=== PATIENT | male | born 1985 | race Caucasian/White ===

== ENCOUNTER 2017-09-15 16:06 | Emergency (ER) | payer OTHER ==
[2017-09-15] MEDS ORDERED: Doxycycline 100 MG Cap ONE (16:15)
--- NOTE | 2017-09-15 17:23 | EDM.PDOC ---
ED HPI GENERAL MEDICAL PROBLEM - General Chief Complaint: General Stated Complaint: TICK BITE Time Seen by Provider: 09/15/17 16:30 Source of Information: Reports: Patient History Limitations: Reports: No Limitations - History of Present Illness INITIAL COMMENTS - FREE TEXT/NARRATIVE: According to patient he claims that he has had a tick bite on his right lower back, which he claims is not sure how long, but pt's claims this was noted 3 days ago. He has developed a itchy rash over the bite area. the tick was removed at home. Pt claims that he has been having body aches and muscle aches since yesterday. No fever or chills. No joint pain or swelling. No nausea. No cough or URI symptoms. As he saw the tick he got concerned and is here for recheck. Associated Symptoms: Reports: Weakness. Denies: Confusion, Chest Pain, Cough, Diaphoresis, Fever/Chills, Headaches, Malaise, Nausea/Vomiting, Rash, Seizure, Shortness of Breath - Related Data Allergies Allergy/AdvReac Type Severity Reaction Status Date / Time No Known Allergies Allergy Verified 08/01/16 17:32 Home Meds: Home Meds Omeprazole [Prilosec] 10 mg PO DAILY 08/25/14 [History] Past Medical History Cardiovascular History: Reports: None, Afib Respiratory History: Reports: None Gastrointestinal History: Reports: None Genitourinary History: Reports: None Musculoskeletal History: Reports: Arthritis, Back Pain, Chronic Neurological History: Reports: Concussion Psychiatric History: Reports: Anxiety, Depression, Mood Swings, Panic Attack Endocrine/Metabolic History: Reports: Obesity/BMI 30+, Vitamin D Deficiency Oncologic (Cancer) History: Reports: None - Infectious Disease History Infectious Disease History: Reports: Chicken Pox, Influenza - Past Surgical History HEENT Surgical History: Reports: Oral Surgery Social & Family History - Family History Family Medical History: Noncontributory - Tobacco Use Smoking Status *Q: Current Every Day Smoker Years of Tobacco use: 10 Used Tobacco, but Quit: No - Alcohol Use Days Per Week of Alcohol Use: 3 Number of Drinks Per Day: 2 Total Drinks Per Week: 6 - Recreational Drug Use Recreational Drug Use: No ED ROS GENERAL - Review of Systems Review Of Systems: See Below Constitutional: Reports: Weakness. Denies: Fever, Chills HEENT: Denies: Rhinitis, Sinus Problem, Throat Pain, Throat Swelling Respiratory: Denies: Shortness of Breath, Wheezing, Cough, Sputum Cardiovascular: Denies: Chest Pain, Lightheadedness GI/Abdominal: Denies: Abdominal Pain, Nausea, Vomiting : Denies: Dysuria, Flank Pain Musculoskeletal: Reports: Muscle Pain, Muscle Stiffness. Denies: Arm Pain, Back Pain, Joint Pain, Joint Swelling Skin: Denies: Bruising, Pruritis, Rash, Erythema Neurological: Denies: Confusion, Dizziness, Headache, Syncope, Weakness ED EXAM, GENERAL - Physical Exam Exam: See Below Exam Limited By: No Limitations General Appearance: Alert, WD/WN, No Apparent Distress Eye Exam: Bilateral Eye: EOMI, PERRL Ears: Normal External Exam, Normal Canal, Hearing Grossly Normal, Normal TMs Ear Exam: Bilateral Ear: Auricle Normal, Canal Normal, TM normal Nose: Normal Inspection, Normal Mucosa, No Blood Throat/Mouth: Normal Inspection, Normal Lips, Normal Teeth, Normal Gums, Normal Oropharynx, Normal Voice, No Airway Compromise Head: Atraumatic, Normocephalic Neck: Normal Inspection, Supple, Non-Tender, Full Range of Motion Respiratory/Chest: No Respiratory Distress, Lungs Clear, Normal Breath Sounds, No Accessory Muscle Use, Chest Non-Tender Cardiovascular: Normal Peripheral Pulses, Regular Rate, Rhythm, No Edema, No Gallop, No JVD, No Murmur, No Rub GI/Abdominal: Normal Bowel Sounds, Soft, Non-Tender, No Organomegaly, No Distention, No Abnormal Bruit, No Mass Skin Exam: Warm, Intact, Normal Color, No Rash, Other (right lower back: ther is a 3cm circular pinkish red rash with the cetner dark spot. minimal warmth to tocuh.) Course - Vital Signs Text/Narrative:: Pt has tick bite with bull's eye rash over the right lower back. I have empirically treated him with Doxy 100mg BID for 10 days. advised to avoid direct sunlight. His CBC done today appears normal. Reassured that his myalgia is not asso with his tick bite, and he probably has viral muscle aches. Advised rest and hydration. Motrin 800mg 3 times daily as needed for pain, should improve in 2-3 days. If not better follow in clinic Last Recorded V/S: Last Vital Signs Temp 98.3 F 09/15/17 16:15 Pulse 71 09/15/17 16:15 Resp 12 09/15/17 16:15 BP 142/87 H 09/15/17 16:15 Pulse Ox 98 09/15/17 16:15 - Orders/Labs/Meds Labs: Laboratory Tests 09/15/17 Range/Units 17:20 WBC 10.0 (4.0-11.0) K/uL RBC 5.78 (4.50-6.50) M/uL Hgb 15.9 (13.0-18.0) g/dL Hct 46.3 (40.0-54.0) % MCV 80 (76-96) fL MCH 27.5 (27.0-32.0) pg MCHC 34.3 (31.0-35.0) g/dL RDW 13.5 (11.0-16.0) % Plt Count 150 (150-400) K/uL MPV 11.5 H (6.0-10.0) fL Neut % (Auto) 66.5 (45.0-70.0) % Lymph % (Auto) 23.6 (20.0-40.0) % [place] % (Auto) 7.8 (3.0-10.0) % Eos % (Auto) 1.9 (1.0-5.0) % Baso % (Auto) 0.2 (0.0-0.5) % Neut # (Auto) 6.65 (2.00-7.50) K/uL Lymph # (Auto) 2.36 (1.50-4.00) K/uL [place] # (Auto) 0.78 (0.20-0.80) K/uL Eos # (Auto) 0.19 (0.04-0.40) K/uL Baso # (Auto) 0.02 (0.02-0.10) K/uL Departure - Departure Time of Disposition: 17:30 Disposition: Home, Self-Care 01 Condition: Fair Clinical Impression: Myalgia, Tick bite - Discharge Information Instructions: Lyme Disease Forms: ED Department Discharge Additional Instructions: Pt has tick bite with bull's eye rash over the right lower back. I have empirically treated him with Doxy 100mg BID for 10 days. advised to avoid direct sunlight. His CBC done today appears normal. Reassured that his myalgia is not asso with his tick bite, and he probably has viral muscle aches. Advised rest and hydration. Motrin 800mg 3 times daily as needed for pain, should improve in 2-3 days. If not better follow in clinic - Problem List & Annotations (1) Myalgia SNOMED Code(s): 31971338 Code(s): M79.1 - MYALGIA Status: Acute (2) Tick bite SNOMED Code(s): 74935715 Code(s): W57.XXXA - BIT/STUNG BY NONVENOM INSECT & OTH NONVENOM ARTHROPODS, INIT Status: Acute - Problem List Review Problem List Initiated/Reviewed/Updated: Yes - Assessment/Plan Assessment:: Tick bite with Bull's eye rash Viral Myalgia Plan: Pt has tick bite with bull's eye rash over the right lower back. I have empirically treated him with Doxy 100mg BID for 10 days. advised to avoid direct sunlight. His CBC done today appears normal. Reassured that his myalgia is not asso with his tick bite, and he probably has viral muscle aches. Advised rest and hydration. Motrin 800mg 3 times daily as needed for pain, should improve in 2-3 days. If not better follow in clinic
== END 2017-09-15 17:30 | disposition home or self-care (01) ==
LOC: LB.ED 16:06
DX: S00.86XA Insect bite (nonvenomous) of other part of head, initial encounter (principal); M79.1 Myalgia; F17.210 Nicotine dependence, cigarettes, uncomplicated; Z79.899 Other long term (current) drug therapy; W57.XXXA Bitten or stung by nonvenomous insect and other nonvenomous arthropods, initial encounter
CPT/HCPCS: 36415; 85025; 99283; A9270

== ENCOUNTER 2019-12-03 22:01 | Emergency (ER) | payer OTHER ==
[2019-12-03] MEDS ORDERED: Amoxicillin 500 MG Cap ONE (23:00)
--- NOTE | 2019-12-04 01:28 | ER ---
REASON FOR EMERGENCY ROOM VISIT: Fever and sore throat. HISTORY OF PRESENT ILLNESS: This 34-year-old man has had a sore throat and a fever since approximately 2 a.m. this morning when he was awakened with a sore throat. He had a 1 or 2- day history of minimally productive cough prior to that. His sore throat and fever continued throughout the day, reaching highs of 103 to 104 degrees. He finally decided to take some aspirin this evening and his temperature came down to normal. He has had some mild nausea but no vomiting. PAST MEDICAL HISTORY: 1. GERD. 2. History of atrial fibrillation, intermittent. MEDICATIONS: Include omeprazole. ALLERGIES: NONE. REVIEW OF SYSTEMS: Pertinent positives and negatives as listed in the HPI. PHYSICAL EXAMINATION: GENERAL: He is a pleasant man in no acute distress. HEENT: No conjunctivitis is noted. Oropharynx shows that he has erythema and tonsillar patchy whitish exudates. A strep screen was obtained. NECK: There is no cervical adenopathy. It is supple. CHEST: Clear to auscultation with good air exchange and no wheezes, rhonchi, or rales. CARDIAC: Regular rate without murmur or rub. ABDOMEN: Soft, nontender. No hepatosplenomegaly. EXTREMITIES: [place], warm with no cyanosis and good capillary refill. LABORATORY DATA: A strep screen was negative. We obtained a nasopharyngeal swab for influenza. His strep screen was positive, and his nasopharyngeal swab for influenza A and B was negative. IMPRESSION: Streptococcal pharyngitis. PLAN: Amoxicillin 500 mg p.o. q.i.d., dispensed #30. Other supportive measures were discussed with him. He understands and agrees with this plan. All questions were answered. MOO /[id number]
== END 2019-12-03 23:20 | disposition home or self-care (01) ==
LOC: LB.ED 22:01
DX: J02.0 Streptococcal pharyngitis (principal)
CPT/HCPCS: 87430; 87804; 87804-59; 99283; A9270-GY

== ENCOUNTER 2021-06-08 10:54 | Emergency (ER) | payer OTHER ==
--- NOTE | 2021-06-08 14:23 | EDM.PDOC ---
ED HPI GENERAL MEDICAL PROBLEM - General Chief Complaint: Cardiovascular Problem Stated Complaint: HEART ISSUE Time Seen by Provider: 06/08/21 11:10 - History of Present Illness INITIAL COMMENTS - FREE TEXT/NARRATIVE: Pt states he had an irregular heartbeat last evening for awhile. He feels better now, but is concerned about it. He has Hx of A fib, but is not on any meds for it. He denies chest pain, or SOB. He does not feel sick. - Related Data Allergies Allergy/AdvReac Type Severity Reaction Status Date / Time No Known Allergies Allergy Verified 06/08/21 11:24 Home Meds: Home Meds Omeprazole [Prilosec] 10 mg PO DAILY 08/25/14 [History] Past Medical History Cardiovascular History: Reports: None, Afib Respiratory History: Reports: None Gastrointestinal History: Reports: None Genitourinary History: Reports: None Musculoskeletal History: Reports: Arthritis, Back Pain, Chronic Neurological History: Reports: Concussion Psychiatric History: Reports: Anxiety, Depression, Mood Swings, Panic Attack Endocrine/Metabolic History: Reports: Obesity/BMI 30+, Vitamin D Deficiency Oncologic (Cancer) History: Reports: None - Infectious Disease History Infectious Disease History: Reports: Chicken Pox, Influenza - Past Surgical History HEENT Surgical History: Reports: Oral Surgery Other Musculoskeletal Surgeries/Procedures:: back pain: history 11 years per patient Social & Family History - Family History Family Medical History: No Pertinent Family History - Tobacco Use Years of Tobacco use: 15 Packs/Tins Daily: 1 - Recreational Drug Use Recreational Drug Type: Reports: Marijuana/Hashish Recreational Drug Use Frequency: Weekly ED ROS GENERAL - Review of Systems Review Of Systems: Comprehensive ROS is negative, except as noted in HPI. Cardiovascular: Reports: Palpitations (on and off.) ED EXAM, GENERAL - Physical Exam Exam: See Below #1 Interpretation EKG Date: 06/08/21 (NSR at this time.) Course - Vital Signs Last Recorded V/S: Last Vital Signs Temp 97 F 06/08/21 11:21 Pulse 63 06/08/21 11:57 Resp 16 06/08/21 11:57 BP 128/89 06/08/21 11:57 Pulse Ox 68 L 06/08/21 11:57 - Orders/Labs/Meds Orders: Active Orders 24 hr Category Date Time Status Chest 1V Frontal [CR] Stat Exams 06/08/21 11:20 Taken Labs: Laboratory Tests 06/08/21 06/08/21 Range/Units 11:30 11:33 WBC 8.0 (4.0-11.0) K/uL RBC 5.78 (4.50-6.50) M/uL Hgb 16.0 (13.0-18.0) g/dL Hct 47.0 (40.0-54.0) % MCV 81 (76-96) fL MCH 27.7 (27.0-32.0) pg MCHC 34.0 (31.0-35.0) g/dL RDW 13.7 (11.0-16.0) % Plt Count 127 L (150-400) K/uL MPV 11.7 H (6.0-10.0) fL Neut % (Auto) 67.3 (45.0-70.0) % Lymph % (Auto) 23.7 (20.0-40.0) % [place] % (Auto) 7.4 (3.0-10.0) % Eos % (Auto) 1.3 (1.0-5.0) % Baso % (Auto) 0.3 (0.0-0.5) % Neut # (Auto) 5.38 (2.00-7.50) K/uL Lymph # (Auto) 1.89 (1.50-4.00) K/uL [place] # (Auto) 0.59 (0.20-0.80) K/uL Eos # (Auto) 0.10 (0.04-0.40) K/uL Baso # (Auto) 0.02 (0.02-0.10) K/uL Sodium 142 (136-145) mmol/L Potassium 4.0 (3.5-5.1) mmol/L Chloride 105 (98-107) mmol/L Carbon Dioxide 26.2 (21.0-32.0) mmol/L Anion Gap 14.8 (5.0-15.0) mmol/L BUN 19 (8-26) mg/dL Creatinine 0.82 (0.70-1.30) mg/dL Est Cr Clr Drug Dosing 119.33 mL/min Estimated GFR (MDRD) > 60 (>60) MLS/MIN BUN/Creatinine Ratio 23.2 (6-25) Glucose 118 H (74-100) mg/dL Calcium 8.8 (8.5-10.1) mg/dL Total Bilirubin 0.5 (0.0-1.0) mg/dL AST 32 (15-37) U/L ALT 47 (12-78) U/L Alkaline Phosphatase 53 (46-116) U/L Troponin I < 0.017 (0.000-0.060) ng/mL Total Protein 7.5 (6.4-8.2) g/dL Albumin 3.9 (3.4-5.0) g/dL Globulin 3.6 (2.2-4.2) g/dL Albumin/Globulin Ratio 1.1 (0.8-2.0) - Radiology Interpretation Free Text/Narrative:: CXR reveals no acute findings on first impression. Waiting on RAD report. Departure - Departure Time of Disposition: 12:15 Disposition: Home, Self-Care 01 Clinical Impression: Palpitations with regular cardiac rhythm Instructions: Atrial Fibrillation, [id number] Referrals: Argelia Cee MD [Primary Care Provider] - Forms: ED Department Discharge Care Plan Goals: take Cardizem as directed and follow up at the clinic next week. Sepsis Event Note (ED) - Evaluation Sepsis Screening Result: No Definite Risk - Focused Exam Vital Signs: Vital Signs Temp Pulse Resp BP Pulse Ox 06/08/21 11:57 63 16 128/89 68 L 06/08/21 11:21 97 F 68 16 145/90 H 97 - My Orders Last 24 Hours: My Active Orders 06/08/21 11:20 Chest 1V Frontal [CR] Stat - Assessment/Plan Last 24 Hours: My Active Orders 06/08/21 11:20 Chest 1V Frontal [CR] Stat
--- NOTE | 2021-06-08 14:43 | CR ---
Date of Service: 06/08/21 Clinical Data: Chest pain. AP CHEST: No priors. The patient has taken a poor inspiration. The heart size is normal. The lungs are clear. No pneumothorax. No pleural effusions. No evidence of acute intrathoracic disease. [id number] [facility]
== END 2021-06-08 12:09 | disposition home or self-care (01) ==
LOC: LB.ED 10:54
DX: R00.2 Palpitations (principal); E66.9 Obesity, unspecified; Z68.41 Body mass index [BMI] 40.0-44.9, adult; Z79.899 Other long term (current) drug therapy; Z72.0 Tobacco use
CPT/HCPCS: 36415; 71045; 80053; 84484; 85025; 93005; 99285-25

== ENCOUNTER 2021-06-10 14:40 | Emergency (ER) | payer OTHER ==
[2021-06-10] MEDS ORDERED: Metoprolol Tartrate 25 MG Tab ONE ×3 (14:55→17:56)
[2021-06-10] MEDS ORDERED: Sodium Chloride 0.9% 10 ML Syringe FLUSH PRN (15:12)
[2021-06-10] MEDS ORDERED: Sodium Chloride 0.9% 1,000 ML IV ONE (15:12)
[2021-06-10] MEDS ORDERED: Metoprolol Tartrate 25 MG Tab PO ONE (15:38)
[2021-06-10] MEDS ORDERED: Magnesium Sulfate/D5W 1 GM/100 ML Premix Bag IV STA (16:07)
[2021-06-10] MEDS ORDERED: Potassium Chloride 20 MEQ Tab.ER PO ONE (16:07)
--- NOTE | 2021-06-10 16:13 | EDM.PDOC ---
ED HPI GENERAL MEDICAL PROBLEM - General Chief Complaint: Cardiovascular Problem Stated Complaint: HIGH BLOOD PRESSURE Time Seen by Provider: 06/10/21 15:00 Source of Information: Reports: Patient History Limitations: Reports: No Limitations - History of Present Illness INITIAL COMMENTS - FREE TEXT/NARRATIVE: patient presented to the ER with a c/o palpitations, for the last 3-4 days, got worse over the last 24hrs. He also reports mild exertional dyspnea. No fever, chills or cough. No dizziness or syncope. h/o afib in the past - several years - never been on meds. Was last seen in the ER 2 days ago for the a similar complaint - was started on Diltiazem 120mg once daily. He is back again because no improvement tin symptoms. Onset: Gradual Duration: Day(s): (3) - Related Data Allergies Allergy/AdvReac Type Severity Reaction Status Date / Time No Known Allergies Allergy Verified 06/08/21 11:24 Home Meds: Home Meds Omeprazole [Prilosec] 10 mg PO DAILY 08/25/14 [History] Diltiazem [Cardizem] 120 mg PO DAILY 06/10/21 [History] Magnesium Oxide 400 mg PO DAILY #14 tab 06/10/21 [Rx] Past Medical History Cardiovascular History: Reports: None, Afib Respiratory History: Reports: None Gastrointestinal History: Reports: None Genitourinary History: Reports: None Musculoskeletal History: Reports: Arthritis, Back Pain, Chronic Neurological History: Reports: Concussion Psychiatric History: Reports: Anxiety, Depression, Mood Swings, Panic Attack Endocrine/Metabolic History: Reports: Obesity/BMI 30+, Vitamin D Deficiency Oncologic (Cancer) History: Reports: None - Infectious Disease History Infectious Disease History: Reports: Chicken Pox, Influenza - Past Surgical History HEENT Surgical History: Reports: Oral Surgery Other Musculoskeletal Surgeries/Procedures:: back pain: history 11 years per patient Social & Family History - Family History Family Medical History: No Pertinent Family History - Tobacco Use Tobacco Use Status *Q: Current Every Day Tobacco User Years of Tobacco use: 15 Packs/Tins Daily: 1 - Caffeine Use Caffeine Use: Reports: Coffee, Soda - Recreational Drug Use Recreational Drug Type: Reports: Marijuana/Hashish ED ROS GENERAL - Review of Systems Review Of Systems: See Below Constitutional: Reports: No Symptoms HEENT: Reports: No Symptoms Respiratory: Reports: No Symptoms Cardiovascular: Reports: Dyspnea on Exertion, Palpitations Endocrine: Reports: No Symptoms GI/Abdominal: Reports: No Symptoms Musculoskeletal: Reports: No Symptoms Skin: Reports: No Symptoms Neurological: Reports: No Symptoms Psychiatric: Reports: No Symptoms ED EXAM, GENERAL - Physical Exam Exam: See Below Exam Limited By: No Limitations General Appearance: Alert, WD/WN, No Apparent Distress Eye Exam: Bilateral Eye: EOMI, PERRL Head: Atraumatic Respiratory/Chest: No Respiratory Distress Cardiovascular: Normal Peripheral Pulses, Regular Rate, Rhythm GI/Abdominal: Normal Bowel Sounds Extremities: Normal Inspection Neurological: Alert, Oriented, No Motor/Sensory Deficits Psychiatric: Normal Affect #1 Interpretation EKG Date: 06/10/21 Rhythm: NSR [place]: Normal P-Wave: Present QRS: Normal ST-T: Normal QT: Normal Course - Vital Signs Last Recorded V/S: Last Vital Signs Temp Pulse 79 06/10/21 15:39 Resp BP 107/64 06/10/21 15:39 Pulse Ox - Orders/Labs/Meds Orders: Active Orders 24 hr Category Date Time Status EKG Documentation Completion [RC] ASDIRECTED Care 06/10/21 15:13 Active Sodium Chloride 0.9% [Saline Flush] Med 06/10/21 15:12 Active 10 ml FLUSH ASDIRECTED PRN Saline Lock Insert [OM.PC] Routine Oth 06/10/21 15:12 Ordered Medication Orders Sodium Chloride (Sodium Chloride 0.9% 10 Ml Syringe) 10 ml FLUSH ASDIRECTED PRN PRN Reason: Keep Vein Open Labs: Laboratory Tests 06/10/21 06/10/21 06/10/21 Range/Units 15:30 15:30 15:30 WBC 11.7 H D (4.0-11.0) K/uL RBC 6.05 (4.50-6.50) M/uL Hgb 16.7 (13.0-18.0) g/dL Hct 48.3 (40.0-54.0) % MCV 80 (76-96) fL MCH 27.6 (27.0-32.0) pg MCHC 34.6 (31.0-35.0) g/dL RDW 14.2 (11.0-16.0) % Plt Count 150 (150-400) K/uL MPV 11.7 H (6.0-10.0) fL D-Dimer, Quantitative < 100 (0-400) ng/mL Sodium 141 (136-145) mmol/L Potassium 3.4 L (3.5-5.1) mmol/L Chloride 104 (98-107) mmol/L Carbon Dioxide 22.8 (21.0-32.0) mmol/L Anion Gap 17.6 H (5.0-15.0) mmol/L BUN 20 (8-26) mg/dL Creatinine 0.92 (0.70-1.30) mg/dL Est Cr Clr Drug Dosing 106.36 mL/min Estimated GFR (MDRD) > 60 (>60) MLS/MIN BUN/Creatinine Ratio 21.7 (6-25) Glucose 128 H (74-100) mg/dL Calcium 9.9 (8.5-10.1) mg/dL Phosphorus 3.5 (2.5-4.9) mg/dL Magnesium 1.5 L (1.8-2.4) mg/dL Meds: Medications Generic Name Dose Route Start Last Admin Trade Name Freq PRN Reason Stop Dose Admin Sodium Chloride 10 ml 06/10/21 15:12 Sodium Chloride 0.9% 10 Ml Syringe FLUSH ASDIRECTED PRN Keep Vein Open Discontinued Medications Generic Name Dose Route Start Last Admin Trade Name Freq PRN Reason Stop Dose Admin Sodium Chloride 1,000 mls @ 999 mls/hr 06/10/21 15:12 06/10/21 15:20 Normal Saline IV 06/10/21 16:12 999 mls/hr .BOLUS ONE Administration Magnesium Sulfate/Dextrose 1 gm 06/10/21 16:07 06/10/21 16:31 Magnesium Sulfate/D5w 1 Gm/100 Ml Premix Bag IV 06/10/21 16:08 1 gm NOW STA Administration Metoprolol Tartrate 25 mg 06/10/21 15:38 06/10/21 15:39 Metoprolol Tartrate 25 Mg Tab PO 06/10/21 15:39 25 mg ONETIME ONE Administration Metoprolol Tartrate Confirm 06/10/21 17:51 Metoprolol Tartrate 25 Mg Tab Administered 06/10/21 17:52 Dose 75 mg .ROUTE .STK-MED ONE Potassium Chloride 20 meq 06/10/21 16:07 06/10/21 16:33 Potassium Chloride 20 Meq Tab.Er PO 06/10/21 16:08 20 meq ONETIME ONE Administration - Re-Assessments/Exams Free Text/Narrative Re-Assessment/Exam: was connected to a monitor normal vitals EKG - NSR but marked sinus arrhythmias. labs were ordered - including CBC, BMP, DDimer, Mag and PO4. IVF bolus labs significant for mild hypokalemia and Hypomagnesemia. Normal Ddimer. K and Mg were placed by Po route PO metoprolol 25 mg was given 06/10/21 17:44 patient reports significant improvement in symptoms no more palpitations Departure - Departure Time of Disposition: 17:45 Disposition: Home, Self-Care 01 Condition: Good Clinical Impression: Palpitations with regular cardiac rhythm, Hypomagnesemia, Acute hypokalemia Prescriptions: Magnesium Oxide 400 mg PO DAILY #14 tab Instructions: Hypomagnesemia, Atrial Fibrillation, [id number] Referrals: PCP,None [Primary Care Provider] - Forms: ED Department Discharge Additional Instructions: - start taking metoprolol twice daily as prescribed - stop taking diltiazem - start taking magnesium one tab daily - increase food that is rich in potassium - follow up with your PCP/linen attendant in 1-2 weeks as needed - return to the ER if symptoms got worse or any concerns Sepsis Event Note (ED) - Focused Exam Vital Signs: Vital Signs Pulse BP 06/10/21 15:39 79 107/64 - Problem List & Annotations (1) Acute hypokalemia SNOMED Code(s): 94532718 Code(s): E87.6 - HYPOKALEMIA Status: Acute Priority: Low Current Visit: Yes (2) Hypomagnesemia SNOMED Code(s): 673241630 Code(s): E83.42 - HYPOMAGNESEMIA Status: Acute Priority: Low Current Visit: Yes - Problem List Review Problem List Initiated/Reviewed/Updated: Yes - My Orders Last 24 Hours: My Active Orders 06/10/21 15:12 Sodium Chloride 0.9% [Saline Flush] 10 ml FLUSH ASDIRECTED PRN Saline Lock Insert [OM.PC] Routine 06/10/21 15:13 EKG Documentation Completion [RC] ASDIRECTED - Assessment/Plan Last 24 Hours: My Active Orders 06/10/21 15:12 Sodium Chloride 0.9% [Saline Flush] 10 ml FLUSH ASDIRECTED PRN Saline Lock Insert [OM.PC] Routine 06/10/21 15:13 EKG Documentation Completion [RC] ASDIRECTED Plan: - start taking metoprolol twice daily as prescribed - stop taking diltiazem - start taking magnesium one tab daily - increase food that is rich in potassium - follow up with your PCP/linen attendant in 1-2 weeks as needed - return to the ER if symptoms got worse or any concerns
== END 2021-06-10 17:55 | disposition home or self-care (01) ==
LOC: LB.ED 14:40
DX: E87.6 Hypokalemia (principal); E83.42 Hypomagnesemia; R00.2 Palpitations; I49.8 Other specified cardiac arrhythmias; I48.91 Unspecified atrial fibrillation; E66.9 Obesity, unspecified; Z68.41 Body mass index [BMI] 40.0-44.9, adult; Z72.0 Tobacco use; Z79.899 Other long term (current) drug therapy
CPT/HCPCS: 36415; 80048; 83735; 84100; 85027; 85379; 93005; 96365; 99285; A9270; J3475; J7030

== ENCOUNTER 2021-08-28 14:13 | Emergency (ER) | payer OTHER ==
--- NOTE | 2021-08-28 15:19 | EDM.PDOC ---
ED HPI GENERAL MEDICAL PROBLEM - General Chief Complaint: Eye Problems Stated Complaint: RIGHT EYE REDNESS Time Seen by Provider: 08/28/21 14:30 Source of Information: Reports: Patient History Limitations: Reports: No Limitations - History of Present Illness INITIAL COMMENTS - FREE TEXT/NARRATIVE: This patient presents to the emergency department for evaluation of eye redness and pain. He states he was working outside, cutting some brush and did not notice anything in particular of concern however started to have some eye irritation last night. He states he woke up this morning it was a little bit worse. He has got some pain, redness and a little bit of clear drainage from his right eye. He states he does not think he had a foreign body in it but rather has a scratch of some sort. He denies other concerns or complaints. Right Eye Pain Score (Numeric/FACES): 5 - Related Data Allergies Allergy/AdvReac Type Severity Reaction Status Date / Time No Known Allergies Allergy Verified 08/28/21 14:24 Home Meds: Home Meds Omeprazole [Prilosec] 10 mg PO DAILY 08/25/14 [History] Magnesium Oxide 400 mg PO DAILY #14 tab 06/10/21 [Rx] Metoprolol Tartrate 25 mg PO BID #30 tablet 06/10/21 [Rx] Past Medical History Cardiovascular History: Reports: None, Afib Respiratory History: Reports: None Gastrointestinal History: Reports: None Genitourinary History: Reports: None Musculoskeletal History: Reports: Arthritis, Back Pain, Chronic Neurological History: Reports: Concussion Psychiatric History: Reports: Anxiety, Depression, Mood Swings, Panic Attack Endocrine/Metabolic History: Reports: Obesity/BMI 30+, Vitamin D Deficiency Oncologic (Cancer) History: Reports: None - Infectious Disease History Infectious Disease History: Reports: Chicken Pox, Influenza - Past Surgical History HEENT Surgical History: Reports: Oral Surgery Other Musculoskeletal Surgeries/Procedures:: back pain: history 11 years per patient Social & Family History - Family History Family Medical History: No Pertinent Family History - Tobacco Use Tobacco Use Status *Q: Unknown Ever Used Tobacco - Caffeine Use Caffeine Use: Reports: Coffee, Soda ED ROS GENERAL - Review of Systems Review Of Systems: Comprehensive ROS is negative, except as noted in HPI. ED EXAM GENERAL W FULL EYE - Physical Exam Exam: See Below Exam Limited By: No Limitations General Appearance: Alert, WD/WN, No Apparent Distress Eye Exam: Right Eye: Abnormal Pupil (Erythematous, injected), Conjunctival Injection, Corneal Abrasion (At the 9 o'clock position to right eye), Foreign Body (No foreign body was noted), Bilateral Eye: PERRL Eyelids: Bilateral: Normal Appearance Cornea Exam: Right: Foreign Body (No foreign body noted), Examined with Flourescein (Corneal abrasion 9:00 position), Left: Normal Appearance Extraocular Movements: Bilateral: Intact Pupillary Reaction: Bilateral: Brisk Ears: Normal External Exam Throat/Mouth: Normal Inspection Head: Atraumatic, Normocephalic Neck: Full Range of Motion Respiratory/Chest: No Respiratory Distress, No Accessory Muscle Use Course - Vital Signs Last Recorded V/S: Last Vital Signs Temp 35.9 C L 08/28/21 14:25 Pulse 77 08/28/21 14:25 Resp 16 08/28/21 14:25 BP 145/99 H 08/28/21 14:25 Pulse Ox - Re-Assessments/Exams Free Text/Narrative Re-Assessment/Exam: 08/28/21 15:17 This patient presents to the emergency department for evaluation of eye irritation. History clinical findings are most consistent with a corneal abrasion. This was noted with a Beck lamp exam using fluorescein. He did have increased uptake of fluorescein in the 9 o'clock position and his right eye. There is no evidence of a foreign body, penetrating globe injury, corneal clouding, irregular pupil or extraocular movements. There is no evidence of hyphema, iritis, infectious keratitis, or scleritis. 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 The patient was stable at the time of discharge. Departure - Departure Time of Disposition: 14:45 Disposition: Home, Self-Care 01 Condition: Good Clinical Impression: Corneal abrasion, right, Corneal abrasion - Discharge Information *PRESCRIPTION DRUG MONITORING PROGRAM REVIEWED*: Not Applicable *COPY OF PRESCRIPTION DRUG MONITORING REPORT IN PATIENT KATRIN: Not Applicable Instructions: Corneal Abrasion, [id number] Referrals: Argelia Cee MD [Primary Care Provider] - Forms: ED Department Discharge Care Plan Goals: Apply Erythromycin oint again tonight and tomorrow morning and if irritation persists tomorrow night. F/u with eye doctor as needed. Sepsis Event Note (ED) - Evaluation Sepsis Screening Result: No Definite Risk - Focused Exam Vital Signs: Vital Signs Temp Pulse Resp BP 08/28/21 14:25 35.9 C L 77 16 145/99 H
== END 2021-08-28 14:47 | disposition home or self-care (01) ==
LOC: LB.ED 14:13
DX: S05.01XA Injury of conjunctiva and corneal abrasion without foreign body, right eye, initial encounter (principal); E66.9 Obesity, unspecified; Z68.39 Body mass index [BMI] 39.0-39.9, adult
CPT/HCPCS: 99282

== ENCOUNTER 2022-01-27 09:57 | Emergency (ER) | payer OTHER | END 2022-01-27 10:39 | disposition home or self-care (01) | LOC: LB.ED 09:57 | DX: S05.01XA Injury of conjunctiva and corneal abrasion without foreign body, right eye, initial encounter (principal); E66.9 Obesity, unspecified; Z68.30 Body mass index [BMI] 30.0-30.9, adult; Z79.899 Other long term (current) drug therapy; W22.09XA Striking against other stationary object, initial encounter | CPT/HCPCS: 99283 ==

== ENCOUNTER 2023-07-23 11:34 | Emergency (ER) | payer OTHER | END 2023-07-23 13:11 | disposition home or self-care (01) | LOC: LB.ED 11:34 | DX: S63.602A Unspecified sprain of left thumb, initial encounter (principal); W50.0XXA Accidental hit or strike by another person, initial encounter | CPT/HCPCS: 73130-LT; 99283 ==

== ENCOUNTER 2025-03-18 19:40 | Emergency (ER) | payer OTHER ==
[2025-03-18] MEDS: Sodium Chloride 0.9% 1,000 ML IV ONE (20:16)
[2025-03-18] MEDS: Metoprolol Tartrate 50 MG Tab PO ONE (20:20)
[2025-03-18] MEDS: Metoprolol Tartrate 50 MG Tab ONE (20:26)
[2025-03-18 20:44] LABS: BASOPHILS ABSOLUTE AUTO 0.04 K/uL (0.02-0.10); BASOPHILS PERCENT AUTO 0.5 % (0.0-0.5); EOSINOPHILS ABSOLUTE AUTO 0.13 K/uL (0.04-0.40); EOSINOPHILS PERCENT AUTO 1.5 % (1.0-5.0); HEMATOCRIT 44.9 % (40.0-54.0); HEMOGLOBIN 15.9 g/dL (13.0-18.0); LYMPHOCYTES ABSOLUTE AUTO 1.37 K/uL (1.50-4.00); MEAN CORPUSCULAR HEMOGLOBIN 27.5 pg (27.0-32.0); MEAN CORPUSCULAR HGB CONC 35.4 g/dL (31.0-35.0); MEAN CORPUSCULAR VOLUME 78 fL (76-96); MEAN PLATELET VOLUME 12.6 fL (6.0-10.0); MONOCYTES ABSOLUTE AUTO 0.79 K/uL (0.20-0.80); MONOCYTES PERCENT AUTO 9.3 % (3.0-10.0); NEUTROPHILS ABSOLUTE AUTO 6.21 K/uL (2.00-7.50); NEUTROPHILS PERCENT AUTO 72.7 % (45.0-70.0); PLATELET COUNT,PLT 144 K/uL (150-400); RED BLOOD CELL COUNT 5.79 M/uL (4.50-6.50); RED CELL DISTRIBUTION WIDTH 13.3 % (11.0-16.0); WHITE BLOOD CELL COUNT,WBC 8.5 K/uL (4.0-11.0)
[2025-03-18 21:03] LABS: A/G RATIO 1.1 (0.8-2.0); ALBUMIN 3.6 g/dL (3.4-5.0); ANION GAP 13.1 mmol/L (5.0-15.0); BILIRUBIN TOTAL 0.6 mg/dL (0.0-1.0); BUN/CREATININE RATIO 17.5 (6-25); CALCIUM 8.9 mg/dL (8.5-10.1); CARBON DIOXIDE,CO2 26.7 mmol/L (21.0-32.0); CREATININE 0.97 mg/dL (0.70-1.30); EST CRCL DRUG DOSING (CG) 96.96 mL/min; POTASSIUM,K 3.8 mmol/L (3.5-5.1); PROTEIN TOTAL,TP 6.9 g/dL (6.4-8.2); TROPONIN I HIGH SENSITIVITY 5.2 pg/ml (<=60.4)
[2025-03-18 21:26] LABS: PTT,PARTIAL THROMBOPLSTIN TIME 25.3 SECONDS (24.4-33.2)
[2025-03-18 21:28] LABS: PROTHROMBIN TIME 10.9 sec (9.0-11.5)
== END 2025-03-18 21:23 | disposition home or self-care (01) ==
LOC: LB.ED 19:40
DX: R00.2 Palpitations (principal); I48.91 Unspecified atrial fibrillation; Z79.899 Other long term (current) drug therapy; Z79.84 Long term (current) use of oral hypoglycemic drugs
CPT/HCPCS: 36415; 71045; 80053; 84484; 85025; 85610; 85730; 93005; 93010; 96360; 99284; 99285; A9270; J7030

== ENCOUNTER 2025-03-21 00:25 | Emergency (ER) | payer OTHER ==
[2025-03-21] MEDS: Sodium Chloride 0.9% 10 ML Syringe FLUSH PRN (00:44)
[2025-03-21] MEDS: Metoprolol Tartrate 50 MG Tab PO ONE (01:25)
== END 2025-03-21 01:46 | disposition home or self-care (01) ==
LOC: LB.ED 00:25
DX: I49.1 Atrial premature depolarization (principal); I48.91 Unspecified atrial fibrillation; E11.9 Type 2 diabetes mellitus without complications; E66.9 Obesity, unspecified; Z68.41 Body mass index [BMI] 40.0-44.9, adult; K21.9 Gastro-esophageal reflux disease without esophagitis; Z79.899 Other long term (current) drug therapy; Z79.84 Long term (current) use of oral hypoglycemic drugs; Z67.41 Type O blood, Rh negative
CPT/HCPCS: 36415; 84484; 93005; 93242; 99285; A9270; 93010; 99284